=== PATIENT | female | born 1975 | race Caucasian/White ===

== ENCOUNTER 2016-07-10 13:46 | Inpatient (IN) | payer BC ==
--- NOTE | ~2016-07-10 | CT2 ---
[facility] A Service of [facility] RADIOLOGY TEXT RESULTS PATIENT: KARINA BOSE LOCATION: SED : 73 UNIT #: [id number] AGE: [address]: REJI AVILA SEX: F ORDER DR: [id number] [place] [id number] E MR#: [id number] Acc #: [id number] NAME: KARINA BOSE. : 1975 SEX: F STUDY DATE/TIME: 07/10/2016 15:22 UNIT: SED ROOM: STUDY DESCRIPTION: CT Abd and Pelv W Cont Attending Physician: Reji Avila Ordering Physician: Reji Avila Primary Care Physician: Makenna Goetz M.D. MEDICAL IMAGING REPORT This report is preliminary unless electronic signature is present. EXAM CT abdomen and pelvis with contrast INDICATIONS Generalized abdominal pain beginning on last Sunday. PROCEDURE Contrast-enhanced CT of the abdomen and pelvis COMPARISON 11/24/[address] exam was performed with one or more of the following radiation dose reduction techniques: automatic exposure control, adjustment of mA and/or kV according to patient size, and iterative reconstruction. FINDINGS Abdomen with contrast: Included lung bases are clear. Liver, spleen, kidneys, adrenal glands, pancreas, gallbladder unremarkable. Uncomplicated sigmoid diverticula. There is inflammatory change as well as a fluid collection along the inferior aspect of the cecum. There also some locally prominent probably reactive lymph nodes. Normal-appearing appendix is not seen. The collection contains fluid and air and measures 4.2 cm. Pelvis with contrast: Complex cystic structure in the left adnexa measuring up to 5.6 cm previously 4.3 cm. Small amount of free fluid in the left adnexa. A 3.2 cm left Bartholin gland cyst. No aggressive appearing bone lesion. [facility] A Service [facility] RADIOLOGY TEXT RESULTS PATIENT: KARINA BOSE LOCATION: SED : 73 UNIT #: [id number] AGE: [address]: REJI AVILA SEX: F ORDER DR: IMPRESSION Inflammation and fluid collection in the right lower quadrant along the inferior aspect of the cecum, favored to represent appendicitis with associated abscess. The abscess measures up to 4.2 cm. Complex multicystic appearance of the left adnexa. Given the patient's age, probably represents either a combination of functional cysts possibly with hydrosalpinx. Pelvic structures would be better evaluated with pelvic ultrasound. Dictated by... Eliseo Barrientos M.D. THIS IS AN ELECTRONICALLY VERIFIED REPORT Eliseo Barrientos M.D. at 07/12/2016 2:28 PM CASSI/ld TD: 07/10/2016 20:15 JOB #: [id number] MEDICAL IMAGING REPORT Page 1 of 1
[~2016-07-10 13:46] MED LIST: EFFEXOR; ONDANSETRON ODT4 MG DOB; PERCOCET 5-3251 TAB PO; VOLTAREN50 MG PO
[2016-07-10] MEDS ORDERED: BUSPAR15 M1 PO (13:50)
[2016-07-10] MEDS ORDERED: ALEVE220 M1 (13:51)
[2016-07-10 14:40] LABS: URINE SOURCE CLEAN CATCH
[2016-07-10 14:43] LABS: BASOPHIL# 0.1 X10e3 (0-0.3); BASOPHIL% 0.3 % (0-2.5); EOSINOPHIL# 0.2 X10e3 (0-0.7); EOSINOPHIL% 1.2 % (0.0-7.0); HEMATOCRIT 36.9 % (35.0-45.0); HEMOGLOBIN 12.3 gm/dL (12.0-16.0); LYMPHOCYTE% 18.7 % (17.0-45.0); MEAN CELL VOLUME 93.6 FL (83-96); MEAN CORPUSCULAR HEMOGLOBIN 31.2 PG (28-34); MEAN CORPUSCULAR HGB CONC 33.3 g/dL (30-36); MEAN PLATELET VOLUME 7.7 FL (6.5-11.5); MONOCYTE# 1.2 X10e3 (0-1.0); MONOCYTE% 7.6 % (3.0-12.0); NEUTROPHIL# 11.7 X10e3 (1.5-7.1); NEUTROPHIL% 72.2 % (40-75); PLATELET COUNT 342 X10e3 (140-420); RED BLOOD COUNT 3.94 X10e (3.90-5.30); WHITE BLOOD COUNT 16.1 X10e3 (4.0-10.5)
[2016-07-10 14:55] LABS: DIFF IND NO
[2016-07-10 15:01] LABS: ALBUMIN SERUM 3.5 g/dL (3.5-5.0); BILIRUBIN,TOTAL 0.4 mg/dL (0.2-2.0); BUN/CREATININE RATIO 18.33; CALCIUM SERUM 8.6 mg/dL (8.4-10.2); CREATININE SERUM 0.6 mg/dL (0.6-1.4); GLOM FILT RATE Estimated 111.6 mL/min (>60); POTASSIUM 3.6 mmol/L (3.5-5.1); PROTEIN TOTAL SERUM 7.1 g/dL (6.0-8.3)
[2016-07-10 15:13] LABS: URINE APPEARANCE CLEAR; URINE BILIRUBIN NEG (NEG); URINE BLOOD NEG (NEG); URINE COLOR YELLOW; URINE GLUCOSE NEG (NORM); URINE KETONE NEG (NEG); URINE LEUKOCYTE ESTERASE NEG (NEG); URINE NITRATE NEG (NEG); URINE PH 5.5 (5-8); URINE PROTEIN NEG (NEG); URINE UROBILINOGEN 0.2 MG/DL (NORM)
[2016-07-10 15:14] LABS: MICRO INDICATED? NO
[2016-07-14] MEDS ORDERED: AUGMENTIN PO (07:34)
[2016-07-14] MEDS ORDERED: HYDROCODON-ACE1 EAC7 PO (07:35)
== END 2016-07-14 12:05 | disposition home or self-care (01) | DRG 373 ==
LOC: SED 13:46 → C4C 17:20 → SED 17:21 → CEDOF 17:21 → C4C 07-14 12:05
PROVIDERS: Nurse Practitioner
PROC: 0W9G3ZZ Drainage of Peritoneal Cavity, Percutaneous Approach (ICD-10-PCS; principal; 2016-07-11)
DX: K35.3 Acute appendicitis with localized peritonitis (principal); F41.9 Anxiety disorder, unspecified; Z88.1 Allergy status to other antibiotic agents; Z82.49 Family history of ischemic heart disease and other diseases of the circulatory system; Z87.891 Personal history of nicotine dependence
CPT/HCPCS: 74177; 77012; 80048; 80053; 81003; 82947; 84703; 85025; 85027; 85610; 85730; 87070; 87205; 96361; 96365; 96375; 99285; C1729; C9113; J1170; J1650; J2250; J2270; J2405; J2543; J2765; J3010; Q9967

== ENCOUNTER 2016-07-28 12:07 | Inpatient (IN) | payer BC ==
--- NOTE | ~2016-07-28 | US77 ---
[facility] A Service of [facility] RADIOLOGY TEXT RESULTS PATIENT: KARINA BOSE LOCATION: [facility] 466-01 : 73 UNIT #: [id number] AGE: [address]: Janes Finnegan MD SEX: F ORDER DR: [id number] [facility] [address] [place], [place] [address] [id number] I MR#: [id number] Acc #: [id number] NAME: KARINA BOSE. : 1975 SEX: F STUDY DATE/TIME: 08/01/2016 14:20 UNIT: [facility] ROOM: [facility] STUDY DESCRIPTION: US Kidney Bilateral Complete Attending Physician: Janes Finnegan M.D. Referring Physician: Janes Finnegan M.D. Ordering Physician: Santiago Monahan M.D. Primary Care Physician: Makenna Goetz M.D. MEDICAL IMAGING REPORT This report is preliminary unless electronic signature is present EXAM Renal ultrasound bilateral, 08/01/2016 INDICATIONS 41-year-old female with acute renal injury. GFR 9, BUN 28, creatinine 5.3. TECHNIQUE Sonographic imaging of the kidneys was performed bilaterally. Correlation is made with CT 07/28/2016. FINDINGS The right kidney measures 10.3 cm, long axis, and the left 11.2 cm. No shadowing stone or hydronephrosis on either side. Kidneys are otherwise unremarkable. Bladder not well distended but otherwise unremarkable. IMPRESSION 1. Negative renal ultrasound. Dictated by... Antony Estrella M.D. THIS IS AN ELECTRONICALLY VERIFIED REPORT Antony Estrella M.D. at 08/02/2016 9:16 AM SHERYL/sondra TD: 08/01/2016 22:00 JOB #: [id number] MEDICAL IMAGING REPORT Page 1 of 1 COPY
--- NOTE | ~2016-07-28 | FU ---
[facility] Nutrition Therapy DATE: 08/04/16 Patient: KARINA BOSE Physician: JONNY Address: [address] [place] [address] Room/Bed: [address] [place] [address], Zip: [place] [address] Admit Date: 07/28/16 Date of : 73 Height: 4 11 Weight: [phone] NUTRITION MONITORING/FOLLOW-UP: Reason: TPN f/u 41 y/o female admitted for appendicitis, abd pain; s/p percutaneous drainage of abscess from appendicitis and cecectomy Anthropometrics: 4'11", wt: 135# (61 kg), BMI: 27 Labs: K+ 3.2, Cl- 114, Glu 118, BUN 36, Creat 4.7, Ca++ 7.2, Alb 2.3, Mg++ 1.2, accuchecks 134-151, GFR 10.6 Meds: TPN, dextrose 5%, vancomycin, protonix IV, ativan, zofran, phenergan I&O's: 3650/531. BM 08/03 Skin: previously noted Estimated Nutrition Needs: 9686-3751 kcal (25-30 kcal/kg) 61-85 g protein (1.0-1.4 g/kg) fluids consistent with kcals or per MD Assessment: Chart reviewed, events noted. RD internal audit manager attempted to speak to pt but pt was taking a bath at time of RD internal audit manager visit. Per RN, Pt is currently receiving TPN (dextrose 25%) at a rate of 60 mL/hr x 24 hours, which is the goal rate per pharmacy. No lipids are being provided at this time. The pt is on a clear liquid diet. Please see recommendations, RD will continue to follow. Dx: Inadequate oral intake r/t appendicitis, cecectomy AEB NPO/CL x 5 days -IN PROGRESS Intervention: 1. TPN 2. Clear liquid diet Monitoring, Evaluation and Goals: 1. Oral intake; if diet is advanced, tolerate/consume >50% of all meals and/or supplements -NOT ACTIVE 2. TPN; if TPN started, provide >80% estimated needs x 24 hours -MET 3. GI function; promote regular GI function -MET/IN PROGRESS 4. Labs; WNL -NOT MET (see labs noted above) Recommendations: [facility] Nutrition Therapy DATE: 08/04/16 Patient: KARINA Gomez BILLANDRES Physician: JONNY Address: [address] [place] [address] Room/Bed: [address] [place] [address], Zip: [place] [phone] Admit Date: 07/28/16 Date of : [birth year] Height: 4 11 Weight: 135 61.849776 1. Continue TPN (25% dextrose) at rate of 60 mL/hr and advance to goal rate of 65 mL/hr x 24 hours. This will provide 1326 non-protein kcal, 78 g protein, 1638 total kcal (GUR 4.4). 2. Pt could benefit from Ensure Clear supplements BID for additional kcal, protein and fluid 3. Obtain updated triglyceride level to determine lipid needs. 4. Continue to closely monitor glucose and electrolytes for refeeding syndrome. 5. Once medically feasible and diet advanced, recommend GI soft/ low-fiber diet + [address] will f/u per protocol as pt is at moderate nutritional risk. Respectfully, PRIETO BAI, music internship Mena Kessler MS, RD, LD Food and Nutritional Services [facility] cc: client file
--- NOTE | ~2016-07-28 | CT2 ---
[facility] A Service of [facility] & [facility] RADIOLOGY TEXT RESULTS PATIENT: KARINA BOSE LOCATION: [facility] 466-01 : 73 UNIT #: [id number] AGE: [address]: Janes Finnegan MD SEX: F ORDER DR: [id number] [facility] [address] [place], [place] [address] [id number] I MR#: [id number] Acc #: [id number] NAME: KARINA BOSE. : 1975 SEX: F STUDY DATE/TIME: 07/28/2016 14:02 UNIT: [facility] ROOM: [facility] hospital STUDY DESCRIPTION: CT Abd and Pelv W Cont Attending Physician: Janes Finnegan M.D. Referring Physician: Janes Finnegan M.D. Ordering Physician: Janes Finnegan M.D. Primary Care Physician: Makenna Goetz M.D. MEDICAL IMAGING REPORT This report is preliminary unless electronic signature is present EXAM CT of the abdomen and pelvis with IV contrast media. HISTORY Right lower quadrant pain, nausea, vomiting, and low grade fever since July 04. TECHNIQUE Axial imaging of the abdomen and pelvis was obtained with IV contrast. This CT exam was performed with one or more of the following radiation dose reduction techniques: automatic exposure control, adjustment of mA and/or kV according to patient size, and iterative reconstruction. COMPARISON Compared directly to the study of July 13. FINDINGS Lung bases are clear. Liver, spleen, adrenals, gallbladder, and pancreas are within normal limits. Both kidneys are normal. No dilated or thickened loops of bowel are seen in the upper abdomen. Study shows a recurrent abscess in the right lower quadrant. The drainage tube has been removed. It measures 3.3 x 2.7 cm. There is diverticulosis without diverticulitis. There are incidental follicular cysts in both ovaries and the patient has a cyst in the labia on the left, measuring 3 cm in diameter. CONCLUSION 1. Interim removal of the right-sided drain with redevelopment of a fluid collection, presumably an abscess, in the right lower quadrant measuring 3.3 x 2.7 cm in diameter. STS. [facility] A Service of [facility] & [facility] RADIOLOGY TEXT RESULTS PATIENT: KARINA BOSE LOCATION: [facility] 466-01 : 73 UNIT #: [id number] AGE: [address]: Janes Finnegan MD SEX: F ORDER DR: 2. Incidental follicular cyst. 3. Labial cyst measuring 3 cm, unchanged. 4. Findings called to Dr. Finnegan at the time of this dictation. Dictated by... Ellis Thomas M.D. THIS IS AN ELECTRONICALLY VERIFIED REPORT Ellis Thomas M.D. at 08/01/2016 3:39 PM COLLETTE/abida TD: 07/28/2016 19:01 JOB #: [id number] MEDICAL IMAGING REPORT Page 1 of 1 COPY
--- NOTE | ~2016-07-28 | OR ---
Unit #: [id number] #: [id number] Patient: KARINA BOSE [id number] [address] [place], [place] [address] [id number] I MR#: [id number] NAME: KARINA BOSE. ROOM: 466 Date of Procedure: 07/29/2016 Admission Date: 07/28/2016 Surgeon: Zack Orellana M.D. : 1975 Attending Physician: Janes Finnegan M.D. Referring Physician: Janes Finnegan M.D. Primary Care Physician: Makenna Goetz M.D. OPERATIVE REPORT PREOPERATIVE DIAGNOSIS Recurrent abscess, status post percutaneous drainage of abscess from perforated appendicitis. POSTOPERATIVE DIAGNOSES Recurrent abscess, status post percutaneous drainage of abscess from perforated appendicitis with indurated perforated cecum with right lower quadrant abscess. PROCEDURES PERFORMED Exploratory laparotomy, adhesiolysis, drainage of abscess, and cecectomy. ANESTHESIA General endotracheal. COMPLICATIONS None. ESTIMATED BLOOD LOSS Minimal. DESCRIPTION OF PROCEDURE After the patient was prepped and draped in usual fashion, a midline laparotomy incision was made from just above the pubic bone to just above the umbilicus. The peritoneal cavity opened to approximate the skin incision with electrocautery. Retractors were placed. There was a hard indurated mass in the right pelvic wall. This was able to be broken into bluntly. The abscess. cavity was entered. Pus was expressed and sent for culture. The pus was then suctioned free. The bulk of the indurated mass composed of terminal ileum as well as cecum. The bottom of the cecum was able to be lifted out of the pelvis with blunt dissection. The white line of Toldt was then incised with electrocautery. The right colon was rotated medially with blunt and some electrocautery dissection where appropriate. The portion of the abscess cavity that encompassed the terminal ileum and cecum was examined. Hemostat was able to probe into the cecum at this location. The area is very indurated and I do not believe it would be amenable to suture closure. The decision was made to perform a cecectomy. There was adhesed omentum to the ascending colon. This was taken off using electrocautery. The right colon was examined. The area custodial up to the hepatic flexure was divided with a MATHEUS stapler. The ileum was divided just proximal to the ileocecal valve with a MATHEUS stapler as well. The mesentery was scored with electrocautery and then Unit #: [id number] #: [id number] Patient: KARINA BOSE taken down between Marielos clamps and 2-0 silk ties close to the bowel wall. A [id number] stapled anastomosis was then made in the usual fashion. The mesenteric defect was closed with interrupted sutures of 2-0 silk. There was a good palpable lumen to the anastomosis. A drain was placed through a separate stab incision in the right upper quadrant placed down the right gutter through the bed of the old abscess and into the pelvis and secured to the skin with a silk ligature. The peritoneal cavity was then irrigated with 2 L of saline, lots of bacitracin, and suctioned free. The fascia was then closed with running #1 looped PDS. Skin was closed with clips. Dressings were applied. The patient was taken to the recovery room in good condition. Dictated by... Humberto Donato/camila TD: 07/29/2016 18:12 JOB #: [id number] OPERATIVE REPORT Page 1 of 1 X Zack Orellana PROCEDURE OPERATIVE NOTE
--- NOTE | ~2016-07-28 | CR72 ---
[facility] A Service of [facility] & [facility] RADIOLOGY TEXT RESULTS PATIENT: KARINA BOSE LOCATION: [facility] 466-01 : 73 UNIT #: [id number] AGE: [address]: Janes Finnegan MD SEX: F ORDER DR: [id number] [facility] [address] [place], [place] [address] [id number] I MR#: [id number] Acc #: [id number] NAME: KARINA BOSE. : 1975 SEX: F STUDY DATE/TIME: 08/06/2016 17:58 UNIT: [facility] ROOM: [facility] STUDY DESCRIPTION: CR Chest Single View Portable Attending Physician: Janes Finnegan M.D. Referring Physician: Janes Finnegan M.D. Ordering Physician: Janes Finnegan M.D. Primary Care Physician: Makenna Goetz M.D. MEDICAL IMAGING REPORT This report is preliminary unless electronic signature is present EXAM Portable chest. HISTORY Shortness of air today. FINDINGS Right arm approach PICC tip is in the right atrium, 3 cm beyond the junction of the SVC and right atrium. Patchy infiltrate in the medial right base, likely in the lower lobe, is similar to this is similar to 08/04/2016. There is also questionable atelectasis or infiltrate in the retrocardiac left lower lobe. IMPRESSION 1. Patchy subsegmental infiltrate in the medial right base likely in the right lower lobe and questionable patchy infiltrate or atelectasis in the retrocardiac left lower lobe, similar to 08/04/2016. 2. Remainder of the lungs are clear. Dictated by... Chevy Prasad M.D. THIS IS AN ELECTRONICALLY VERIFIED REPORT Chevy Prasad M.D. at 08/07/2016 5:38 PM CARL/raudel TD: 08/07/2016 09:15 JOB #: [id number] MEDICAL IMAGING REPORT Page 1 of 1 COPY
--- NOTE | ~2016-07-28 | A ---
[facility] Nutrition Therapy DATE: 08/02/16 Patient: KARINA Gomez BILLANDRES Physician: JONNY Address: [address] [place] [address] RD Room/Bed: [address] [place] [address], Zip: [place] [address] Admit Date: 07/28/16 Date of : [birth year] Height: 4 11 Weight: 135 [id number] NUTRITIONAL ASSESSMENT: REASON: NPO/CL x 5days Pt is a 41 y/o female admitted for appendicitis, abd pain; s/p percutaneous drainage of abcess from appendicitis and cecectomy. PMH: diverticulitis, ovarian cyst, anxiety, smoker Anthropometrics: ht: 4'11" wt: 135# (61 kg) BMI 27 Labs: Cl- 115, Glu 122, BUN 37, Creat 5.1, Ca++ 7.2, Alb 2.2 Meds: reglan, protonix IV, dextrose 5%, zosyn, ativan, zofran, phenergan I/O & Bowel function: 2380/540. BM 07/31. Bloog drainage in VICKY bulb, NGT removed yesterday. Skin Integrity: closed surgical incision- abd; bruise- BUE Estimated Nutrition Needs: 9862-9410 kcal (25-30 kcal/kg) 61-85 g protein (1.0-1.4 g/kg) fluids consistent with kcals or per MD Assessment: Chart reviewed, events noted. Pt seen for NPO/CL x 5 days. Pt is s/p percutaneous drainage of abscess from appendicitis and s/p cecectomy. Per RN and chart, TPN is to be started per renal, no orders yet. Per chart, renal is questioning a possible LINDA. Pt is getting a kidney ultrasound today. The pt had bloody drainage in her VICKY bulb, and her NGT has been removed. RD sales and marketing intern visited pt at bedside. Pt said she is hungry and has an appetite and notes stable weights. Please see recommendations, RD will continue to follow. Dx: Inadequate oral intake r/t appendicitis, cecectomy AEB NPO/CL x 5 days Intervention: 1. NPO 2. alternative nutrition support Monitoring, Evaluation and Goals: 1. Oral intake; if diet is advanced, tolerate/consume >50% of all meals and/or supplements 2. Enteral nutrition/TPN; if enteral nutrition or TPN started, provide >80% estimated goal volume x 24 hours 3. GI function; promote regular GI function 4. Labs; WNL [facility] Nutrition Therapy DATE: 08/02/16 Patient: KARINA BOSE Physician: JONNY Address: [address] [facility] [address] Room/Bed: [address] [place] [address], Zip: [place] [address] Admit Date: 07/28/16 Date of : 71 Height: 4 11 Weight: [id number] Recommendations: 1. Once medically feasible, Advance diet to clear liquids as tolerated. Order ensure clear TID. If clear liquids are tolerated, recommend advancing diet to low fiber/GI soft. 2. If diet is not tolerated, begin enteral nutrition support of Vital 1.5 @ 20 mL/hr and advance 10 mL q 8 hours to goal rate of 65 mL/hr x 24 hours as tolerated. This will provide 1560 kcal, 70 g protein, 912 mL free h20. Free h20 flushes per MD. 3. If enteral nutrition is not tolerated, begin TPN (dextrose 25%) at 30 ml/hr, advance 10 ml Q 12 hours and gradually advance to goal rate of 65 mL/hr. This will provide 1326 non-protein kcal, 78 g protein, 1638 total kcal (GUR 4.4). Obtain new triglyceride level to determine lipid needs. RD will f/u per protocol as pt is at moderate nutritional risk. Respectfully, PRIETO BAI RD, LD Mena Kessler MS, RD, LD Food and Nutritional Services [facility] cc: client file
--- NOTE | ~2016-07-28 | CR63 ---
[facility] A Service of [facility] RADIOLOGY TEXT RESULTS PATIENT: KARINA BOSE LOCATION: [facility] 466-01 : 71 UNIT #: [id number] AGE: [address]: Janes Finnegan MD SEX: F ORDER DR: [id number] [facility] [address] [place], [place] [address] [id number] I MR#: [id number] Acc #: [id number] NAME: KARINA BOSE. : 1975 SEX: F STUDY DATE/TIME: 08/04/2016 16:37 UNIT: [facility] ROOM: [facility] STUDY DESCRIPTION: CR Chest 2 View Attending Physician: Janes Finnegan M.D. Referring Physician: Janes Finnegan M.D. Ordering Physician: Santiago Monahan M.D. Primary Care Physician: Makenna Goetz M.D. MEDICAL IMAGING REPORT This report is preliminary unless electronic signature is present EXAM Two views of the chest. COMPARISON July 09, 2012. INDICATIONS 41-year-old female with chest pain, dyspnea and chest tightness for 6 days. Tobacco smoker. FINDINGS As compared to abdomen and pelvis CT dated July 28, 2016, there is a new rounded indistinct opacity in the posterior basilar segment of the right lower lobe highly suspicious for pneumonia. There may be a small associated right pleural effusion. Small left pleural effusion cannot be excluded given hazy attenuation over the left lung base which is favored to be due to breast shadow. Cardiomediastinal silhouette is within normal limits. No evidence of pneumothorax. There is right arm PICC with the tip terminating in the right atrium. Lung volumes are low and this may be a product of low lung volumes and transient in nature. IMPRESSION 1. New rounded vague opacity in the posterior basilar segment of the right lower lobe as compared to CT of July 28, 2016, suspicious for pneumonia. There is a small associated right pleural effusion. Trace left pleural effusion cannot be excluded. 2. Right arm PICC is noted with the tip in the right atrium. Lung volumes are low and this may be transient in nature. Dictated by... Casey Yates M.D. [facility] A Service of [facility] & [facility] RADIOLOGY TEXT RESULTS PATIENT: KARINA BOSE LOCATION: [facility] 466-01 : [birth year] UNIT #: [id number] AGE: [address]: Janes Finnegan MD SEX: F ORDER DR: THIS IS AN ELECTRONICALLY VERIFIED REPORT Casey aYtes M.D. at 08/06/2016 10:22 PM FLORENTINO/brenda TD: 08/05/2016 02:05 JOB #: [id number] MEDICAL IMAGING REPORT Page 1 of 1 COPY
--- NOTE | ~2016-07-28 | DS ---
Unit #: [id number] #: [id number] Patient: KARINA BOSE [id number] [address] [place], [place] [address] [id number] I MR#: [id number] NAME: KARINA BOSE. ROOM: [facility] Age: 41 Sex: F Admission Date: 07/28/2016 : 1975 Discharge Date: 08/08/2016 Attending Physician: Janes Finnegan M.D. Referring Physician: Janes Finnegan M.D. Primary Care Physician: Makenna Goetz M.D. DISCHARGE SUMMARY DISCHARGE DIAGNOSES 1. Perforated cecum with abscess formation. 2. Postoperative pelvic fluid collection. 3. Symptoms of urinary dysuria. OPERATIVE PROCEDURES 1. Exploratory laparotomy. 2. Adhesiolysis. 3. Drainage of abscess with cecectomy and terminal ileectomy. DISCHARGE MEDICATIONS Home medications plus Percocet 7.5 one p.o. q.4 hours p.r.n. pain and Phenergan 25 mg one p.o. q.4 hours p.r.n. nausea. HISTORY OF PRESENT ILLNESS/HOSPITAL COURSE This is a 41-year-old white female who presented to Dr. Finnegan's office with severe right lower quadrant abdominal pain with guarding and rigidity. She underwent emergency CT scanning which showed what appeared to be an abscess from a questionable chronic perforated appendix. She, however, was evaluated and it was felt that her pain continued to be an issue so she underwent operative procedure on July [address] Orellana which showed a problem with her cecum and an abscess formation at that point in time. This was taken care of surgically with adhesiolysis, drainage of abscess, and cecectomy with primary anastomosis. The patient's postoperative course was progressing fairly well until she developed some drop in her hemoglobin and evidence of requiring more fluids. She was given blood and renal medicine was consulted because of some renal insufficiency secondary to anemia, hypotension, and possibly vancomycin. Repeat CT scan showed that there was some fluid in the pelvis, perhaps consistent with some blood. There was some blood in her Ric-Reynaga drain also. She also was started on TPN for nutrition and this continued until she was able to eat. She was much improved on day #5. She had negative ultrasound for DVT. She continued to improve with her TPN and antibiotics. We stopped all of the antibiotics on day #6. Her pathology report finally read out as acute appendicitis with rupture. Her diet was advanced. Her drain was continued, and she was ready to be discharged at present with the drain in place on solid food. We will go ahead and proceed. Patient will come back and see Dr. Finnegan in the office to have her drain removed in three days. Dictated by... Neri Ramirez M.D. Unit #: [id number] #: [id number] Patient: KARINA BOSE Jason BAHENA/milton TD: 08/09/2016 09:44 JOB #: [id number] DISCHARGE SUMMARY Page 1 of 1 X Neri Ramirez MD X DISCHARGE SUMMARY
--- NOTE | ~2016-07-28 | US140 ---
[facility] A Service of [facility] & [facility] RADIOLOGY TEXT RESULTS PATIENT: KARINA BOSE LOCATION: [facility] [id number] : [birth year] UNIT #: [id number] AGE: [address]: Janes Finnegan MD SEX: F ORDER DR: [id number] [facility] [address] [place], [place] [address] [id number] MR#: [id number] Acc #: [id number] NAME: KARINA BOSE. : 1975 SEX: F STUDY DATE/TIME: 08/02/2016 9:41 UNIT: [facility] ROOM: Critical access hospital STUDY DESCRIPTION: US UE Veins Unilat or Ltd Stdy Attending Physician: Janes Finnegan M.D. Referring Physician: Janes Finnegan M.D. Ordering Physician: Janes Finnegan M.D. Primary Care Physician: Makenna Goetz M.D. MEDICAL IMAGING REPORT This report is preliminary unless electronic signature is present EXAM Right upper extremity venous duplex scan 08/02/2016 HISTORY Right arm swelling. Right arm PICC line. FINDINGS High-resolution B-mode imaging and color flow Doppler analysis was performed of the deep and superficial veins of the right upper extremity. A PICC line is noted in the basilic vein in the right upper arm. There is thrombus in the basilic vein associated with the PICC line. There is also thrombus in the right cephalic vein in the mid and distal upper arm. All other veins are fully compressible with no intraluminal thrombus. Spontaneous and phasic flow is noted in the right internal jugular, subclavian, axillary, and brachial veins. IMPRESSION Superficial vein thrombosis of the right basilic vein in the upper arm associated with the PICC line. Superficial vein thrombosis of the right cephalic vein. No deep vein thrombosis is demonstrated in the right arm. Dictated by... Wali English M.D. THIS IS AN ELECTRONICALLY VERIFIED REPORT Wali English M.D. at 08/03/2016 7:35 AM LEOLA/ujstin TD: 08/02/2016 13:48 [facility] A Service of [facility] & [facility] RADIOLOGY TEXT RESULTS PATIENT: KARINA BOSE LOCATION: [facility] [id number] : [birth year] UNIT #: [id number] AGE: [address]: Janes Finnegan MD SEX: F ORDER DR: JANET #: [id number] MEDICAL IMAGING REPORT Page 1 of 1 COPY
[~2016-07-28 12:07] MED LIST changes: +ALEVE220 M1; +AUGMENTIN PO; +BUSPAR15 M1 PO; +HYDROCODON-ACE1 EAC7 PO
[2016-07-28 16:09] LABS: BASOPHIL# 0.1 X10e3 (0-0.3); EOSINOPHIL# 0.1 X10e3 (0-0.7); EOSINOPHIL% 0.8 % (0.0-7.0); HEMATOCRIT 39.5 % (35.0-45.0); LYMPHOCYTE# 2.6 X10e3 (1.0-3.5); LYMPHOCYTE% 22.2 % (17.0-45.0); MEAN CELL VOLUME 92.2 FL (83-96); MEAN CORPUSCULAR HEMOGLOBIN 30.3 PG (28-34); MEAN CORPUSCULAR HGB CONC 32.9 g/dL (30-36); MEAN PLATELET VOLUME 7.6 FL (6.5-11.5); MONOCYTE# 0.8 X10e3 (0-1.0); MONOCYTE% 6.9 % (3.0-12.0); NEUTROPHIL# 8.2 X10e3 (1.5-7.1); NEUTROPHIL% 69.1 % (40-75); PLATELET COUNT 351 X10e3 (140-420); RED BLOOD COUNT 4.28 X10e (3.90-5.30); RED CELL DISTRIBUTION WIDTH 12.7 % (11.0-15.5); WHITE BLOOD COUNT 11.8 X10e3 (4.0-10.5)
[2016-07-28 16:11] LABS: DIFF IND NO
[2016-07-28 16:22] LABS: PARTIAL THROMBOPLASTIN TIME 25.9 SECONDS (23.5-31.3); PROTHROMBIN TIME (PATIENT) 10.7 SECONDS (10.0-11.7)
[2016-07-28 16:35] LABS: BUN/CREATININE RATIO 13.33; CALCIUM SERUM 9.1 mg/dL (8.4-10.2); CREATININE SERUM 0.6 mg/dL (0.6-1.4); GLOM FILT RATE Estimated 111.6 mL/min (>60); POTASSIUM 4.1 mmol/L (3.5-5.1); PROTEIN TOTAL SERUM 7.5 g/dL (6.0-8.3)
[2016-07-30 03:31] LABS: HEMATOCRIT 24.7 % (35.0-45.0); HEMOGLOBIN 8.3 gm/dL (12.0-16.0); MEAN CELL VOLUME 93.6 FL (83-96); MEAN CORPUSCULAR HEMOGLOBIN 31.4 PG (28-34); MEAN CORPUSCULAR HGB CONC 33.5 g/dL (30-36); MEAN PLATELET VOLUME 7.9 FL (6.5-11.5); RED BLOOD COUNT 2.64 X10e (3.90-5.30); RED CELL DISTRIBUTION WIDTH 12.2 % (11.0-15.5); WHITE BLOOD COUNT 15.4 X10e3 (4.0-10.5)
[2016-07-30 08:14] LABS: BUN/CREATININE RATIO 5.17; CALCIUM SERUM 8.1 mg/dL (8.4-10.2); CREATININE SERUM 2.9 mg/dL (0.6-1.4)
[2016-07-30 08:18] LABS: POTASSIUM 5.1 mmol/L (3.5-5.1)
[2016-07-30 17:02] LABS: HEMATOCRIT 22.7 % (35.0-45.0); HEMOGLOBIN 7.4 gm/dL (12.0-16.0)
[2016-07-31 04:14] LABS: HEMATOCRIT 18.5 % (35.0-45.0); MEAN CELL VOLUME 92.6 FL (83-96); MEAN CORPUSCULAR HEMOGLOBIN 30.8 PG (28-34); MEAN CORPUSCULAR HGB CONC 33.2 g/dL (30-36); MEAN PLATELET VOLUME 7.6 FL (6.5-11.5); RED CELL DISTRIBUTION WIDTH 12.5 % (11.0-15.5); WHITE BLOOD COUNT 11.3 X10e3 (4.0-10.5)
[2016-07-31 04:17] LABS: HEMOGLOBIN 6.1 gm/dL (12.0-16.0)
[2016-07-31 04:37] LABS: ALBUMIN SERUM 2.4 g/dL (3.5-5.0); BILIRUBIN,TOTAL 0.7 mg/dL (0.2-2.0); CALCIUM SERUM 8.1 mg/dL (8.4-10.2); CREATININE SERUM 4.6 mg/dL (0.6-1.4); GLOM FILT RATE Estimated 10.9 mL/min (>60); POTASSIUM 4.9 mmol/L (3.5-5.1); PROTEIN TOTAL SERUM 4.8 g/dL (6.0-8.3)
[2016-07-31 12:21] LABS: BASOPHIL% 0.4 % (0-2.5); EOSINOPHIL% 0.3 % (0.0-7.0); HEMATOCRIT 26.2 % (35.0-45.0); LYMPHOCYTE# 1.3 X10e3 (1.0-3.5); LYMPHOCYTE% 9.7 % (17.0-45.0); MEAN CELL VOLUME 91.3 FL (83-96); MEAN CORPUSCULAR HEMOGLOBIN 30.5 PG (28-34); MEAN CORPUSCULAR HGB CONC 33.4 g/dL (30-36); MEAN PLATELET VOLUME 7.7 FL (6.5-11.5); MONOCYTE# 1.1 X10e3 (0-1.0); MONOCYTE% 8.4 % (3.0-12.0); NEUTROPHIL# 10.7 X10e3 (1.5-7.1); NEUTROPHIL% 81.2 % (40-75); PLATELET COUNT 251 X10e3 (140-420); RED BLOOD COUNT 2.87 X10e (3.90-5.30); RED CELL DISTRIBUTION WIDTH 13.7 % (11.0-15.5); WHITE BLOOD COUNT 13.2 X10e3 (4.0-10.5)
[2016-07-31 12:26] LABS: HEMOGLOBIN 8.7 gm/dL (12.0-16.0)
[2016-07-31 12:27] LABS: DIFF IND NO
[2016-07-31 14:49] LABS: URINE APPEARANCE CLEAR; URINE BILIRUBIN NEG (NEG); URINE BLOOD 2+ (NEG); URINE COLOR YELLOW; URINE GLUCOSE NEG (NEG); URINE KETONE NEG (NEG); URINE LEUKOCYTE ESTERASE NEG (NEG); URINE NITRATE NEG (NEG); URINE PH 5.5 (5-8); URINE PROTEIN 1+ (NEG); URINE SPECIFIC GRAVITY 1.013 (1.003-1.035); URINE UROBILINOGEN 0.2 MG/DL (NEG)
[2016-07-31 14:51] LABS: U HYALINE CASTS AUWI 0-2 /[LPF]; URINE BACTERIA AUWI NEG (NEGATIVE); URINE SQUAMOUS EPITHELIAL CELL OCC /[HPF]
[2016-07-31 14:52] LABS: CREATININE,RANDOM URINE 84 mg/dL; SODIUM URINE RANDOM 37 mmol/L
[2016-07-31 15:10] LABS: CULTURE INDICATED? NO
[2016-07-31 18:12] LABS: HEMATOCRIT 24.2 % (35.0-45.0); HEMOGLOBIN 8.1 gm/dL (12.0-16.0); MEAN CELL VOLUME 91.1 FL (83-96); MEAN CORPUSCULAR HEMOGLOBIN 30.6 PG (28-34); MEAN CORPUSCULAR HGB CONC 33.6 g/dL (30-36); MEAN PLATELET VOLUME 8.1 FL (6.5-11.5); RED BLOOD COUNT 2.66 X10e (3.90-5.30); RED CELL DISTRIBUTION WIDTH 13.7 % (11.0-15.5)
[2016-08-01 03:35] LABS: BASOPHIL# 0.1 X10e3 (0-0.3); BASOPHIL% 0.7 % (0-2.5); EOSINOPHIL% 0.1 % (0.0-7.0); HEMATOCRIT 23.6 % (35.0-45.0); HEMOGLOBIN 7.8 gm/dL (12.0-16.0); LYMPHOCYTE# 1.9 X10e3 (1.0-3.5); LYMPHOCYTE% 15.8 % (17.0-45.0); MEAN CELL VOLUME 91.4 FL (83-96); MEAN CORPUSCULAR HEMOGLOBIN 30.4 PG (28-34); MEAN CORPUSCULAR HGB CONC 33.3 g/dL (30-36); MEAN PLATELET VOLUME 8.4 FL (6.5-11.5); MONOCYTE# 1.2 X10e3 (0-1.0); MONOCYTE% 9.9 % (3.0-12.0); NEUTROPHIL# 8.6 X10e3 (1.5-7.1); NEUTROPHIL% 73.5 % (40-75); RED BLOOD COUNT 2.58 X10e (3.90-5.30); RED CELL DISTRIBUTION WIDTH 13.6 % (11.0-15.5); WHITE BLOOD COUNT 11.7 X10e3 (4.0-10.5)
[2016-08-01 04:03] LABS: BUN/CREATININE RATIO 5.28; CALCIUM SERUM 7.2 mg/dL (8.4-10.2); CREATININE SERUM 5.3 mg/dL (0.6-1.4); GLOM FILT RATE Estimated 9.2 mL/min (>60); POTASSIUM 3.9 mmol/L (3.5-5.1)
[2016-08-01 04:37] LABS: DIFF IND YES; PLATELET COUNT 233 X10e3 (140-420)
[2016-08-01 04:39] LABS: PLATELET ESTIMATE NORMAL (NORMAL)
[2016-08-01 04:41] LABS: HYPOCHROMIA SL
[2016-08-01 15:43] LABS: HEMATOCRIT 27.6 % (35.0-45.0); HEMOGLOBIN 9.2 gm/dL (12.0-16.0)
[2016-08-01 20:01] LABS: HEMATOCRIT 27.5 % (35.0-45.0); HEMOGLOBIN 9.3 gm/dL (12.0-16.0)
[2016-08-02 01:51] LABS: BASOPHIL# 0.1 X10e3 (0-0.3); BASOPHIL% 0.8 % (0-2.5); EOSINOPHIL# 0.1 X10e3 (0-0.7); EOSINOPHIL% 0.6 % (0.0-7.0); LYMPHOCYTE# 1.7 X10e3 (1.0-3.5); LYMPHOCYTE% 18.8 % (17.0-45.0); MEAN CORPUSCULAR HEMOGLOBIN 30.4 PG (28-34); MEAN CORPUSCULAR HGB CONC 33.4 g/dL (30-36); MEAN PLATELET VOLUME 7.7 FL (6.5-11.5); MONOCYTE# 0.9 X10e3 (0-1.0); NEUTROPHIL# 6.3 X10e3 (1.5-7.1); NEUTROPHIL% 69.8 % (40-75); PLATELET COUNT 237 X10e3 (140-420); RED BLOOD COUNT 2.96 X10e (3.90-5.30); RED CELL DISTRIBUTION WIDTH 13.7 % (11.0-15.5); WHITE BLOOD COUNT 9.1 X10e3 (4.0-10.5)
[2016-08-02 01:58] LABS: DIFF IND NO
[2016-08-02 02:13] LABS: ALBUMIN SERUM 2.2 g/dL (3.5-5.0); BILIRUBIN,TOTAL 0.4 mg/dL (0.2-2.0); BUN/CREATININE RATIO 7.25; CALCIUM SERUM 7.2 mg/dL (8.4-10.2); CREATININE SERUM 5.1 mg/dL (0.6-1.4); GLOM FILT RATE Estimated 9.6 mL/min (>60); POTASSIUM 3.5 mmol/L (3.5-5.1); PROTEIN TOTAL SERUM 5.2 g/dL (6.0-8.3)
[2016-08-02 07:34] LABS: HEMATOCRIT 27.8 % (35.0-45.0); HEMOGLOBIN 9.1 gm/dL (12.0-16.0)
[2016-08-02 09:53] LABS: CREATININE,RANDOM URINE 152 mg/dL; TOTAL PROTEIN,RANDOM URINE 31 mg/dl (<10)
[2016-08-03 04:09] LABS: HEMATOCRIT 27.2 % (35.0-45.0); HEMOGLOBIN 9.2 gm/dL (12.0-16.0); MEAN CELL VOLUME 90.2 FL (83-96); MEAN CORPUSCULAR HEMOGLOBIN 30.6 PG (28-34); MEAN CORPUSCULAR HGB CONC 33.9 g/dL (30-36); MEAN PLATELET VOLUME 7.8 FL (6.5-11.5); RED BLOOD COUNT 3.01 X10e (3.90-5.30); RED CELL DISTRIBUTION WIDTH 13.6 % (11.0-15.5)
[2016-08-03 04:25] LABS: ALBUMIN SERUM 2.3 g/dL (3.5-5.0); BILIRUBIN,TOTAL 0.6 mg/dL (0.2-2.0); BUN/CREATININE RATIO 7.65; CALCIUM SERUM 7.2 mg/dL (8.4-10.2); CREATININE SERUM 4.7 mg/dL (0.6-1.4); GLOM FILT RATE Estimated 10.6 mL/min (>60); MAGNESIUM 1.2 mg/dL (1.6-3.0); PHOSPHOROUS 3.4 mg/dL (2.5-4.6); POTASSIUM 3.2 mmol/L (3.5-5.1); PROTEIN TOTAL SERUM 4.9 g/dL (6.0-8.3)
[2016-08-03 05:42] LABS: COMPLEMENT C3 80 mg/dL (90-180); COMPLEMENT C4 12 mg/dL (16-47)
[2016-08-04 13:54] LABS: BILIRUBIN,TOTAL 0.5 mg/dL (0.2-2.0); BUN/CREATININE RATIO 8.64; CALCIUM SERUM 7.1 mg/dL (8.4-10.2); CREATININE SERUM 3.7 mg/dL (0.6-1.4); GLOM FILT RATE Estimated 14.2 mL/min (>60); MAGNESIUM 2.1 mg/dL (1.6-3.0); PHOSPHOROUS 3.1 mg/dL (2.5-4.6); POTASSIUM 3.1 mmol/L (3.5-5.1); PROTEIN TOTAL SERUM 4.6 g/dL (6.0-8.3)
[2016-08-04 22:38] LABS: URINE SOURCE CLEAN CATCH
[2016-08-04 22:43] LABS: URINE APPEARANCE CLEAR; URINE BILIRUBIN NEG (NEG); URINE BLOOD NEG (NEG); URINE COLOR YELLOW; URINE GLUCOSE NEG (NEG); URINE KETONE NEG (NEG); URINE LEUKOCYTE ESTERASE NEG (NEG); URINE NITRATE NEG (NEG); URINE PROTEIN NEG (NEG); URINE SPECIFIC GRAVITY 1.009 (1.003-1.035); URINE UROBILINOGEN 0.2 MG/DL (NEG)
[2016-08-04 22:49] LABS: CULTURE INDICATED? NO
[2016-08-05 03:32] LABS: ALBUMIN SERUM 2.3 g/dL (3.5-5.0); BUN/CREATININE RATIO 9.42; CALCIUM SERUM 7.5 mg/dL (8.4-10.2); CREATININE SERUM 3.5 mg/dL (0.6-1.4); GLOM FILT RATE Estimated 15.2 mL/min (>60); MAGNESIUM 2.1 mg/dL (1.6-3.0); PHOSPHOROUS 3.1 mg/dL (2.5-4.6); POTASSIUM 3.4 mmol/L (3.5-5.1)
[2016-08-06 04:00] LABS: BASOPHIL# 0.1 X10e3 (0-0.3); BASOPHIL% 0.7 % (0-2.5); EOSINOPHIL# 0.6 X10e3 (0-0.7); EOSINOPHIL% 4.3 % (0.0-7.0); HEMATOCRIT 27.3 % (35.0-45.0); HEMOGLOBIN 9.2 gm/dL (12.0-16.0); LYMPHOCYTE# 1.9 X10e3 (1.0-3.5); LYMPHOCYTE% 14.2 % (17.0-45.0); MEAN CELL VOLUME 89.6 FL (83-96); MEAN CORPUSCULAR HEMOGLOBIN 30.2 PG (28-34); MEAN CORPUSCULAR HGB CONC 33.8 g/dL (30-36); MEAN PLATELET VOLUME 7.7 FL (6.5-11.5); MONOCYTE# 1.3 X10e3 (0-1.0); MONOCYTE% 9.9 % (3.0-12.0); NEUTROPHIL# 9.3 X10e3 (1.5-7.1); NEUTROPHIL% 70.9 % (40-75); PLATELET COUNT 294 X10e3 (140-420); RED BLOOD COUNT 3.05 X10e (3.90-5.30); RED CELL DISTRIBUTION WIDTH 13.7 % (11.0-15.5); WHITE BLOOD COUNT 13.2 X10e3 (4.0-10.5)
[2016-08-06 04:01] LABS: DIFF IND NO
[2016-08-06 04:15] LABS: ALBUMIN SERUM 2.3 g/dL (3.5-5.0); BILIRUBIN,TOTAL 0.5 mg/dL (0.2-2.0); BUN/CREATININE RATIO 10.57; CALCIUM SERUM 7.9 mg/dL (8.4-10.2); CREATININE SERUM 3.5 mg/dL (0.6-1.4); GLOM FILT RATE Estimated 15.2 mL/min (>60); MAGNESIUM 1.5 mg/dL (1.6-3.0); PHOSPHOROUS 3.4 mg/dL (2.5-4.6); POTASSIUM 3.8 mmol/L (3.5-5.1); PROTEIN TOTAL SERUM 5.2 g/dL (6.0-8.3)
[2016-08-07 03:31] LABS: ALBUMIN SERUM 2.5 g/dL (3.5-5.0); BILIRUBIN,TOTAL 0.6 mg/dL (0.2-2.0); BUN/CREATININE RATIO 13.1; CALCIUM SERUM 8.1 mg/dL (8.4-10.2); CREATININE SERUM 2.9 mg/dL (0.6-1.4); MAGNESIUM 1.8 mg/dL (1.6-3.0); PHOSPHOROUS 3.2 mg/dL (2.5-4.6); POTASSIUM 3.8 mmol/L (3.5-5.1); PROTEIN TOTAL SERUM 5.7 g/dL (6.0-8.3)
[2016-08-07 08:38] LABS: HEMATOCRIT 30.8 % (35.0-45.0); HEMOGLOBIN 10.1 gm/dL (12.0-16.0); MEAN CELL VOLUME 92.2 FL (83-96); MEAN CORPUSCULAR HEMOGLOBIN 30.3 PG (28-34); MEAN CORPUSCULAR HGB CONC 32.9 g/dL (30-36); MEAN PLATELET VOLUME 8.4 FL (6.5-11.5); RED BLOOD COUNT 3.34 X10e (3.90-5.30); RED CELL DISTRIBUTION WIDTH 13.5 % (11.0-15.5); WHITE BLOOD COUNT 14.3 X10e3 (4.0-10.5)
[2016-08-07 18:32] LABS: URINE APPEARANCE CLEAR; URINE BILIRUBIN NEG (NEG); URINE BLOOD 1+ (NEG); URINE COLOR YELLOW; URINE GLUCOSE NEG (NEG); URINE KETONE NEG (NEG); URINE LEUKOCYTE ESTERASE TRACE (NEG); URINE NITRATE NEG (NEG); URINE PROTEIN NEG (NEG); URINE SPECIFIC GRAVITY 1.007 (1.003-1.035); URINE UROBILINOGEN 0.2 MG/DL (NEG)
[2016-08-07 18:35] LABS: CULTURE INDICATED? YES; U HYALINE CASTS AUWI 0-2 /[LPF]; URINE BACTERIA AUWI NEG (NEGATIVE); URINE SQUAMOUS EPITHELIAL CELL NONE SEEN /[HPF]
[2016-08-08 03:14] LABS: BUN/CREATININE RATIO 13.57; CALCIUM SERUM 8.2 mg/dL (8.4-10.2); CREATININE SERUM 2.8 mg/dL (0.6-1.4); GLOM FILT RATE Estimated 19.9 mL/min (>60); MAGNESIUM 1.7 mg/dL (1.6-3.0); PHOSPHOROUS 3.6 mg/dL (2.5-4.6); POTASSIUM 3.7 mmol/L (3.5-5.1)
[2016-08-08] MEDS ORDERED: PERCOCET 7.5-31 EACH PO (10:44)
[2016-08-08] MEDS ORDERED: PHENERGAN25 M1 PO (10:45)
== END 2016-08-08 12:55 | disposition home or self-care (01) | DRG 329 ==
LOC: CCAT 12:07 → C4C 12:17 → CCAT 12:17 → CEDOF 12:17 → C4C 13:04 → CCAT 13:40 → C4C 14:10 → CEDOF 14:10 → C4C 08-08 12:55
PROVIDERS: Internal Medicine Nephrology; Surgery
PROC: 0DBF0ZZ Excision of Right Large Intestine, Open Approach (ICD-10-PCS; 2016-07-29)
PROC: 0DTJ0ZZ Resection of Appendix, Open Approach (ICD-10-PCS; 2016-07-29)
PROC: 0W9F30Z Drainage of Abdominal Wall with Drainage Device, Percutaneous Approach (ICD-10-PCS; 2016-07-29)
PROC: 0DTH0ZZ Resection of Cecum, Open Approach (ICD-10-PCS; principal; 2016-07-29 10:00)
PROC: 02HV33Z Insertion of Infusion Device into Superior Vena Cava, Percutaneous Approach (ICD-10-PCS; 2016-07-31)
PROC: 4A02X4A Measurement of Cardiac Electrical Activity, Guidance, External Approach (ICD-10-PCS; 2016-07-31)
PROC: 30243N1 Transfusion of Nonautologous Red Blood Cells into Central Vein, Percutaneous Approach (ICD-10-PCS; 2016-07-31)
DX: K35.2 Acute appendicitis with generalized peritonitis (principal); N17.0 Acute kidney failure with tubular necrosis; R18.8 Other ascites; E87.2 Acidosis; I95.9 Hypotension, unspecified; D62 Acute posthemorrhagic anemia; F41.9 Anxiety disorder, unspecified; R30.0 Dysuria
CPT/HCPCS: 71010; 71020; 74177; 76770; 80048; 80053; 80069; 80202; 81003; 82150; 82570; 82947; 83690; 83735; 84100; 84156; 84300; 85014; 85018; 85025; 85027; 85610; 85730; 86160; 86162; 86850; 86900; 86901; 86923; 87070; 87075; 87086; 87205; 88307; 93971; C9113; J0131; J0330; J1100; J1170; J1650; J1885; J1940; J2060; J2270; J2405; J2543; J2550; J2710; J2765; J3010; J3370; J3475; J3480; P9016; Q9967

== ENCOUNTER → 2016-08-18 | Outpatient (CLI) | payer BC ==
[~2016-08-18] MED LIST changes: +PERCOCET 7.5-31 EACH PO; +PHENERGAN25 M1 PO
[2016-08-18 15:06] LABS: BUN/CREATININE RATIO 12.72; CALCIUM SERUM 9.5 mg/dL (8.4-10.2); CREATININE SERUM 1.1 mg/dL (0.6-1.4); GLOM FILT RATE Estimated 61.5 mL/min (>60); POTASSIUM 3.7 mmol/L (3.5-5.1)
== END | disposition home or self-care (01) ==
LOC: CLAB 14:12
PROVIDERS: Surgery
DX: K35.3 Acute appendicitis with localized peritonitis (principal)
CPT/HCPCS: 36415; 80048